=== PATIENT | female | born 1960 | race Two or more races ===

== ENCOUNTER 2025-01-24 16:31 | Inpatient (IN) | payer OTHER ==
[2025-01-24 16:56] VITALS: BMI 18.0
[2025-01-24] MEDS ORDERED: P-EPHED 60MG/TRIPROLIDI 2.5MG TABLET PO PRN (17:41)
[2025-01-24] MEDS ORDERED: POLYETHYLENE GLYCOL (HEALTHYLAX) 3350 17 GM PACKET PO PRN (17:41)
[2025-01-24] MEDS ORDERED: MAGNESIUM HYDROX 2400MG/30ML ORAL SUSPENSION 30 ML CUP PO PRN (17:41)
[2025-01-24] MEDS ORDERED: BENZONATATE 200 MG CAPSULE PO PRN (17:41)
[2025-01-24] MEDS ORDERED: IBUPROFEN 400 MG TABLET (FP) PO PRN (17:41)
[2025-01-24] MEDS ORDERED: LOPERAMIDE HCL 2 MG CAPSULE PO PRN (17:41)
[2025-01-24] MEDS ORDERED: hydrOXYzine PAMOATE 25 MG CAPSULE (FP) PO PRN (17:41)
[2025-01-24] MEDS ORDERED: MAG HYDROX/AL HYDROX/SIMETH 30 ML UNIT-DOSE CUP PO PRN (17:41)
[2025-01-24] MEDS ORDERED: BENZOCAINE/MENTHOL (CHLORASEPTIC ) LOZENGE MM PRN (17:41)
[2025-01-24] MEDS ORDERED: NALOXONE (NARCAN) HCL 4 MG/0.1 ML SPRAY NS PRN (17:41)
[2025-01-24] MEDS ORDERED: guaiFENesin 600 MG TABLET.ER (FP) PO PRN (17:41)
[2025-01-24] MEDS ORDERED: IBUPROFEN 600 MG TABLET (FP) PO PRN (17:41)
[2025-01-24] MEDS: MELATONIN 5 MG TABLETS PO PRN (21:54)
[2025-01-24] MEDS: THIAMINE 100 MG TABLET PO SCH (21:54)
[2025-01-24] MEDS: QUEtiapine FUMARATE 100 MG TABLET (FP) PO ONE (21:54)
[2025-01-24] MEDS: MIRTAZAPINE 15 MG TABLET (FP) PO ONE (21:54)
[2025-01-24] MEDS: TUBERCULIN PPD 5 TU/0.1ML SYRINGE (IN PATIENT USE ONLY) ID ONE (21:55)
[2025-01-24] MEDS: LIDOCAINE PATCH REMOVAL MC SCH (21:55)
[2025-01-24] MEDS ORDERED: PATIENT'S OWN MEDICATION (NON-FORMULARY) (Trospium Chloride 20 MG) PO SCH (22:00)
[2025-01-24] MEDS ORDERED: MELATONIN 5 MG TABLETS PO SCH (22:00)
[2025-01-24] MEDS: MOMETASONE FUROATE 220 MCG/IH INHALER IH SCH (22:59)
[2025-01-25] MEDS ORDERED: TOLTERODINE TARTRATE LA 4 MG CAP.SR.24H (FP) PO SCH (10:00)
[2025-01-25] MEDS ORDERED: PATIENT'S OWN MEDICATION (NON-FORMULARY) (Mirabegron [Mirabegron Er] 25 MG Tab.Er.24h) PO SCH (10:00)
[2025-01-25] MEDS: PATIENT'S OWN MEDICATION (NON-FORMULARY) (Trospium Chloride 20 MG) PO SCH (10:09)
[2025-01-25] MEDS: LIDOCAINE 4% PATCH TP SCH (10:09)
[2025-01-25] MEDS: PRENATAL VITAMINS W/ FOLIC ACID TABLET (FP) PO SCH (10:09)
[2025-01-25] MEDS ORDERED: DICYCLOMINE HCL 10 MG CAPSULE PO PRN (11:18)
[2025-01-25] MEDS ORDERED: BISMUTH SUBSALICYLATE 524 MG/30 ML PO PRN (11:18)
[2025-01-25] MEDS: POLYETHYLENE GLYCOL (HEALTHYLAX) 3350 17 GM PACKET PO SCH (12:10)
[2025-01-25 13:23] LABS: MCHC 30.8 g/dl (32.2-35.5); MEAN CELL VOLUME 97.1 fl (79.4-94.8); MEAN PLT VOLUME 10.8 fl (9.4-12.3); RDW 13.2 % (12.4-16.4)
[2025-01-25 13:49] LABS: GLUCOSE,RANDOM 75 mg/dL (74-106); TOT PROT 6.8 g/dl (6.4-8.2)
[2025-01-25 13:50] LABS: CO2 31 mmol/L (21-32)
[2025-01-25 13:52] LABS: ALK PHOS 122 U/L (40-150)
[2025-01-25 13:55] LABS: CREATININE 0.85 mg/dL (0.55-1.3); SGOT/AST 21 U/L (5-34); SGPT/ALT 25 U/L (0-55)
[2025-01-25 14:08] LABS: HCV DIAGNOSTIC IN-HOUSE W/RFLX NON-REACTIVE (NONREACTIVE)
[2025-01-25 14:09] LABS: SYPHILIS W/ RPR CONF NON-REACTIVE (NONREACTIVE)
[2025-01-25] MEDS: GABAPENTIN 300 MG CAPSULE PO SCH (14:38)
[2025-01-25] MEDS: NAPROXEN 250 MG TABLET PO PRN (22:14)
[2025-01-25] MEDS: MIRTAZAPINE 15 MG TABLET (FP) PO SCH (22:16)
[2025-01-25] MEDS: QUEtiapine FUMARATE 100 MG TABLET (FP) PO SCH (22:17)
[2025-01-26] MEDS: GABAPENTIN 400 MG CAPSULE PO SCH (13:54)
[2025-01-27] MEDS: ONDANSETRON *ODT* 4 MG TABLET SL PRN (06:18)
[2025-01-27 08:17] LABS: EPI CELLS 14 /uL (0-25.1); HYALINE CASTS 0 /uL (0-3.1); URINE APPEARANCE CLEAR; URINE BACTERIA 900 /uL (0-1359); URINE BILIRUBIN NEGATIVE (NEGATIVE); URINE COLOR YELLOW; URINE GLUCOSE (UA) NEGATIVE (NEGATIVE); URINE KETONE NEGATIVE (NEGATIVE); URINE LEUK ESTERASE TRACE (NEGATIVE); URINE NITRITE NEGATIVE (NEGATIVE); URINE PROTEIN NEGATIVE (NEGATIVE); URINE RBC 6 /uL (0-23.9); URINE UROBILINOGEN 1.0 mg/dL (0.2-1.0); URINE WBC 11 /uL (0-25.8)
[2025-01-27] MEDS: NICOTINE POLACRILEX 2 MG GUM BUC PRN (10:02)
[2025-01-27] MEDS: ALBUTEROL SO4 HFA INHALER IH PRN (14:36)
[2025-01-27] MEDS: NICOTINE POLACRILEX 2 MG LOZENGE BC PRN (14:44)
[2025-01-28] MEDS: ACETAMINOPHEN 325 MG TABLET (FP) PO PRN (05:51)
[2025-01-28] MEDS: METHOCARBAMOL 500 MG TABLET PO PRN (05:51)
[2025-01-30] MEDS: GABAPENTIN 300 MG, GABAPENTIN 200 MG PO SCH (21:08)
[2025-01-30] MEDS ORDERED: GABAPENTIN 400 MG CAPSULE PO SCH (22:00)
[2025-02-01] MEDS: IBUPROFEN 400 MG TABLET (FP) PO PRN (17:51)
[2025-02-02] MEDS: hydrOXYzine PAMOATE 25 MG CAPSULE (FP) PO PRN (06:25)
[2025-02-04] MEDS: PHENYLEPH/MINERAL OIL/PETROLAT 28 GM OINTMENT RC SCH (21:33)
[2025-02-06 07:44] VITALS: RESP 18
[2025-02-07 07:25] VITALS: TEMP 97.5
[2025-02-07 09:49] VITALS: BP 131/73; PULSE 97
== END 2025-02-07 10:10 | disposition home or self-care (01) | DRG 772 ==
LOC: YASAS 16:31 → Y3NR 19:29 → Y5N 01-28 11:47
PROVIDERS: ADMIT Neuromusculoskeletal Medicine & OMM; ATTEND Psychiatry & Neurology Pain Medicine
PROC: HZ42ZZZ Group Counseling for Substance Abuse Treatment, Cognitive-Behavioral (ICD-10-PCS; principal; 2025-01-24)
DX: F11.20 Opioid dependence, uncomplicated (principal); F12.20 Cannabis dependence, uncomplicated; F17.210 Nicotine dependence, cigarettes, uncomplicated; F43.10 Post-traumatic stress disorder, unspecified; G62.9 Polyneuropathy, unspecified; E78.5 Hyperlipidemia, unspecified; J30.2 Other seasonal allergic rhinitis; M54.50 Low back pain, unspecified; G89.29 Other chronic pain; N32.81 Overactive bladder
CPT/HCPCS: 36415; 80053; 80307; 81003; 82962; 85027; 86780; 86803; 93005; 93010; Q0162